=== PATIENT | male | born 1960 | race Caucasian/White ===

== ENCOUNTER 2019-01-22 09:19 | Emergency (ER) | payer OTHER ==
[2019-01-22] MEDS ORDERED: ASPIRIN 81 MG CHEW PO ONE (09:25)
[2019-01-22] MEDS ORDERED: ONDANSETRON 4 MG/2 ML VIAL IVP ONE ×2 (09:30→11:30)
[2019-01-22] MEDS ORDERED: NITROGLYCERIN OINT 1 GM PKT TP ONE (09:30)
[2019-01-22] MEDS ORDERED: MORPHINE 4 MG/ML SDV IVP ONE (09:30)
--- NOTE | 2019-01-22 09:38 | ER Report ---
History and Physical Time Seen By MD: 09:26 Hx. of Stated Complaint: chest pain and sob similar to previous mi starting about 0600 HPI/ROS CHIEF COMPLAINT: Chest pain HISTORY OF PRESENT ILLNESS: Patient is a 59-year-old male who normally lives in [place] states that he was traveling some. [place] the last day or so. States that it 6 in the morning while leaving the city of [place], he developed chest pain that's similar to his prior anginal equivalent. He at that time took 325 mg aspirin and 4 doses of nitroglycerin without relief of his symptoms. Patient states she has 11 out of 10 chest pain associated with nausea and reports diaphoresis as well as shortness of breath. He states that he is had 5 prior myocardial infarctions and has a history of coronary artery stenting which most recently occurred in August 2018 in [place], [place]. Patient does continue to smoke approximately 1-2 packs of cigarettes per day. He also states he has a history of hypertension and takes medication for this he denies history of hypercholesterolemia. Patient reports allergies to Reglan and Compazine Toradol Avelox and penicillin. REVIEW OF SYSTEMS: Constitutional: No fever, no chills. Reports diaphoresis Eyes: No discharge. ENT: No sore throat. Cardiovascular: Chest pain Respiratory: Shortness of breath Gastrointestinal: Nausea without abdominal pain or vomiting Genitourinary: No hematuria. Musculoskeletal: No back pain. Skin: No rashes. Neurological: No headache. Allergies: Coded Allergies: Penicillins (Verified Allergy, Unknown, 01/22/19) butorphanol (Verified Allergy, Unknown, 01/22/19) ketorolac (Verified Allergy, Unknown, 01/22/19) metoclopramide (Verified Allergy, Unknown, 01/22/19) moxifloxacin (Verified Allergy, Unknown, 01/22/19) prochlorperazine (Verified Allergy, Unknown, 01/22/19) Home Meds Active Scripts Tramadol Hcl (TRAMADOL HCL) 50 Mg Tablet, 50 MG PO Q6H PRN for PAIN, #12 TAB 0 Refills Prov:KARLO CONN MD 01/22/19 Ondansetron Hcl (ZOFRAN) 4 Mg Tablet, 4 MG PO Q8H for Nausea, #15 TAB 0 Refills Prov:KARLO CONN MD 01/22/19 Reported Medications Clopidogrel Bisulfate (PLAVIX) 75 Mg Tablet, 1 TAB PO QDAY, TAB 01/22/19 Aspirin (ASPIR 81) 81 Mg Tablet.dr, 81 MG PO QDAY, TAB 01/22/19 Gabapentin (GABAPENTIN) 300 Mg Capsule, 300 MG PO TID, CAPSULE 01/22/19 Loperamide Hcl (LOPERAMIDE) 2 Mg Capsule, 2 MG PO, CAPSULE 01/22/19 Metoprolol Succinate (METOPROLOL SUCCINATE) 25 Mg Tab.er.24h, 1 TAB PO QDAY, TAB 01/22/19 Divalproex Sodium (DEPAKOTE) 125 Mg Tab, 125 MG PO BID, TAB 01/22/19 Amlodipine Besylate (AMLODIPINE BESYLATE) 10 Mg Tablet, 1 TAB PO QDAY, TAB 01/22/19 Past Medical/Surgical History History of coronary artery disease status post IA 5 with coronary artery stenting, hypertension he denies history of diabetes. Patient does have a history of peripheral neuropathy which she takes gabapentin for, he also has a mood disorder and is on Depakote. He takes amlodipine for blood pressure he is on metoprolol as well as Plavix and aspirin. Constitutional Vital Sign - Last 24 Hours 01/22/19 01/22/19 01/22/19 01/22/19 09:23 09:30 09:40 09:44 Temp 98.0 Pulse 94 79 Resp 18 15 B/P (MAP) 145/117 124/88 (100) 141/89 (106) Pulse Ox 95 96 O2 Delivery Room Air O2 Flow Rate 2.0 01/22/19 01/22/19 01/22/19 01/22/19 09:45 09:50 10:00 10:10 Pulse 81 84 Resp 17 11 B/P (MAP) 144/89 (107) 144/95 (111) 135/90 (105) Pulse Ox 94 93 01/22/19 01/22/19 01/22/19 01/22/19 10:15 10:20 10:30 10:40 Pulse 81 85 Resp 14 21 B/P (MAP) 153/96 (115) 118/65 (82) 136/88 (104) Pulse Ox 91 87 01/22/19 01/22/19 01/22/19 01/22/19 10:45 10:50 11:00 11:10 Pulse 80 70 Resp 25 7 B/P (MAP) 133/95 (108) 140/96 (111) 129/74 (92) Pulse Ox 92 90 01/22/19 01/22/19 01/22/19 01/22/19 11:15 11:20 11:30 12:00 Pulse 75 75 71 Resp 14 23 13 B/P (MAP) 133/98 (110) 135/79 (97) 111/66 (81) Pulse Ox 91 92 91 Physical Exam General/Constitutional: Patient is awake, alert, nontoxic and in no acute respiratory distress. Head: Normocephalic and atraumatic. Eyes: Conjunctival clear, Pupils are equal and reactive to light. Extraocular muscles are intact and symmetrical. Sclera are clear and anicteric. Ears:External canals are clear. Tympanic membranes are clear with normal landmarks and light reflex. Oropharyngeal: Mucous membranes are moist. Mild erythema no exudate Neck: Supple, no adenopathy. Cardiovascular: Distant Heart sounds but regular rate and rhythm Pulmonary: There are decreased lung sounds bilaterally, no obvious wheezes or rales AB: Protuberant but nontender, no guarding or peritoneal signs. Extremities: No gross deformities, No peripheral cyanosis. Able to move all 4 extremities. Neuro: Alert and oriented X3, Skin: No rashes, skin is warm dry and well perfused. Medical Decision Making Data Points Result Diagram: 01/22/1926 01/22/19 0926 Laboratory Hematology Test 01/22/19 09:26 White Blood Count 8.2 k/uL (4.5-11.0) Red Blood Count 5.09 M/uL (4.00-5.60) Hemoglobin 17.6 g/dL (14.0-18.0) Hematocrit 50.0 % (42.0-52.0) Mean Corpuscular Volume 98.2 fL (80.0-96.0) H Mean Corpuscular Hemoglobin 34.5 pg (26.0-33.0) H Mean Corpuscular Hemoglobin Concent 35.2 g/dL (32.0-36.0) Red Cell Distribution Width 13.9 % (11.5-14.5) Platelet Count 174 K/uL (150-450) Mean Platelet Volume 8.7 fL (7.2-11.1) Neutrophils (%) (Auto) 80.0 % (39.4-72.5) H Lymphocytes (%) (Auto) 12.4 % (17.6-49.6) L Monocytes (%) (Auto) 6.2 % (4.1-12.4) Eosinophils (%) (Auto) 1.1 % (0.4-6.7) Basophils (%) (Auto) 0.3 % (0.3-1.4) Nucleated RBC Relative Count (auto) 0.1 /100WBC Neutrophils # (Auto) 6.6 K/uL (2.0-7.4) Lymphocytes # (Auto) 1.0 K/uL (1.3-3.6) L Monocytes # (Auto) 0.5 K/uL (0.3-1.0) Eosinophils # (Auto) 0.1 K/uL (0.0-0.5) Basophils # (Auto) 0.0 K/uL (0.0-0.1) Nucleated RBC Absolute Count (auto) 0.01 K/uL Chemistry Test 01/22/19 09:26 01/22/19 11:28 Sodium Level 140 mmol/L (137-145) Potassium Level 3.7 mmol/L (3.5-5.0) Chloride Level 102 mmol/L (98-107) Carbon Dioxide Level 29 mmol/L (22-30) Blood Urea Nitrogen 11 mg/dl (9-21) Creatinine 1.10 mg/dl (0.66-1.25) Glomerular Filtration Rate Calc > 60.0 Random Glucose 153 mg/dl (75-110) Calcium Level 9.9 mg/dl (8.4-10.2) Total Bilirubin 0.7 mg/dl (0.2-1.3) Aspartate Amino Transf (AST/SGOT) 20 U/L (0-35) Alanine Aminotransferase (ALT/SGPT) 23 U/L (0-56) Alkaline Phosphatase 78 U/L (0-126) B-Type Natriuretic Peptide 73 pg/ml (0-100) Total Protein 7.7 g/dl (6.3-8.2) Albumin 4.7 g/dl (3.5-5.0) Troponin I 0.089 ng/ml Coagulation Test 01/22/19 00:00 01/22/19 09:26 D-Dimer Quantitative (PE/DVT) < 0.27 ug/ml (0-0.50) Prothrombin Time 13.3 seconds (12.0-14.4) Prothromb Time International Ratio 1.01 Activated Partial Thromboplast Time 32 seconds (23-35) EKG/Imaging EKG Interpretation There is no prior EKG at this time to comparison however EKG from today shows normal sinus rhythm with a ventricular rate of [address] segments appeared normal and no evidence of Q waves or prior IA by electrical criteria. EKG shows sinus rhythm with wandering baseline occasional fusion complex otherwise no significant change from initial EKG on presentation. Monitor Interpretation: Normal Sinus Rhythm Imaging FACILITY: [facility] [place] PATIENT NAME: Mingo Weaver : 1960 MR: [id number] V: [id number] EXAM DATE: ORDERING PHYSICIAN: KARLO CONN TECHNOLOGIST: Location: [facility] [place] Patient: Mingo Weaver : 1960 Visit/Account:[id number] Date of Sevice: 01/22/2019 Portable chest, one view. HISTORY: Chest pain. COMPARISON: None. EKG leads project on the chest. Small densities consistent with calcified granulomas project on the left upper lung and aortopulmonary window. The heart and mediastinum are otherwise unremarkable. No bulky adenopathy. Pulmonary vessels are unremarkable. The lungs are otherwise clear. The pleural surfaces are unremarkable. No pneumothorax. A healed fracture is present in the right clavicle. IMPRESSION: Old granulomatous disease. Otherwise no evidence of acute cardiopulmonary disease. Report Dictated By: Felipe Fry MD at 01/22/2019 9:50 AM Report E-Signed By: Felipe Fry MD at 01/22/2019 9:52 AM WSN:VEIN-CHARLES ED Course/Re-evaluation Clinical Indication for ER IV: IV Access ED Course 01/22/2019 9:30:29 am patient with chest pain; After history and physical exam was performed differential diagnosis was formulated which includes but is not limited to acute coronary syndrome, IA although no evidence of ST segment elevation or depression to suggest either STEMI or non-STEMI based on EKG criteria at this time., Pulmonary embolism, pneumothorax, esophageal rupture although this is very unlikely. Also doubt pneumonia, also doubt aortic dissection but will include this in the differential diagnosis. Patient has already taken an appropriate dose of aspirin he is also tried sublingual nitroglycerin without relief. We will give Zofran for nausea, morphine for pain we will also placed 1 inch of Nitropaste on the patient we will attempt to reduce the patient's pain with appropriate analgesics will perform an initial troponin and a repeat troponin had at least 4 hours. We will also perform a d- dimer as well as brain natruretic peptide. I we are going to attempt to obtain medical records in the listed medications from the patient's prior hospitalization in [facility]. 01/22/2019 10:01:38 am patient appears to be resting comfortably watching television in the exam room. He states the 4 mg morphine did not help his pain at all he was redosed with 1 mg of IV Dilaudid. His initial troponin was 0.094 which puts it in the high end of the indeterminate range. Patient states his symptoms did begin around 6 AM and has b een constant, so rather than a delta troponin at 4 hours we will do a dense troponin at the two-hour window which will put him 6 hours from onset of symptoms. It was explained to the patient that if his number goes up or becomes in the positive range we will likely need to discuss transferring him to the closest appropriate facility under cardiology which [facility] be [facility]. Pulmonary embolism has been ruled out as patient is low risk by well's criteria with a negative d-dimer. Chest x-ray is otherwise unremarkable just showing some old granulomatous changes there is no evidence for aortic dissection on x-ray including normal appearance of the aortic knob, normal AP wi ndow no evidence of pleural capping or pleural effusion no evidence of tracheal deviation. HEART SCORE History- (Highly suspicious-2; Moderately suspicious-1; Slightly suspicious- 0)=2 EKG- (Significant ST depression-2; Nonspecific repolarization-1; Normal-0)=0 Age- (>65-2; 45-65-1; <45-0)=1 Risk factors- ( 3 or more-2; 1 to 2-1; None-0)=3 Troponin- >2x normal-2; 1-2x normal-1; < normal limit-0)=1 Total-6 this correlates with a major adverse coronary event in 30 days of 12-16% 01/22/2019 11:17:53 am I was able to obtain medical records from [facility] and clinics which had some very useful history. The patient's last hospital admission was 11/13/2018 to the [facility] for a chest pain evaluation, according to the medical record from the initial H&P the patient was a direct admission to [facility] after he presented to the [facility] ED and was noted that that was his 5th ED visit since last admission. He apparently had a non-STEMI on 08/04/2018 which required a stent JOLEEN to T1 ostial lesion, he presented on 08/10/2018 with chest pain and was re- cast and found to have clean coronary arteries. Patient was noted in his medical records at the patient does have chronically elevated troponins values that they listed as 0.078 with follow-up of 0.077. He was noted in the medical record that the patient does have a history of chronic pain and frequently requesting narcotic medication as ER patient as well as inpatient. He apparently was seen in the emergency department on 11/06/2018 and left against medical advice when he was refused narcotic pain medication. It was also noted during his most recent admission that he would threaten to leave AMA because he wanted to "go outside and smoke" his discharge summary from 11/17/2018 was noted for the following"[He] seems to be seeking anything that might [place] he feels, whether it is gabapentin, Depakote, narcotics, tramadol or SSRI, he asks for all of them." The provider notes that he was concerned about patient being on all of these medications in an unmonitored setting as an outpatient and his recommendation at that time was to discharge the patient without any of these prescriptions specially because he "is not taking care of himself, smokes heavily and seeks narcotics" 01/22/2019 11:35:26 am and informed by nursing staff the patient has refused the acetaminophen for pain. Because I do have concerns about the possibility of seeking opiate pain medication based on the prior medical records that we reviewed wishes off on getting further doses of opiate pain medication I 2nd EKG is unremarkable awaiting for repeat 2nd troponin. If unchanged suspect will discharge the patient home as it appears that this elevation of his troponin may be a chronic and baseline elevation if however the troponin does continue to increase and will consult cardiology for further disposition 01/22/2019 12:01:47 pm a 2nd troponin 0.089 which is slightly lower than i nitial troponin, given the history that this patient has a documented history of chronically elevated troponin feel that findings likely represent a baseline finding in this patient. I do have some concerns about the possibility of opiate pain medicine seeking but I do feel that the patient is safe at this time to be discharged home with recommendation to follow-up with his primary care provider upon return home. Decision to Disposition Date: Jan 22, 2019 Decision to Disposition Time: 12:03 Depart Departure Latest Vital Signs Vital Signs Date Time Temp Pulse Resp B/P (MAP) Pulse Ox O2 Delivery O2 Flow Rate FiO2 01/22/19 12:00 71 13 111/66 (81) 91 01/22/19 09:44 2.0 01/22/19 09:23 98.0 Room Air Impression: Primary Impression: Non-cardiac chest pain Condition: Improved Disposition: HOME OR SELF-CARE New Scripts Tramadol Hcl (TRAMADOL HCL) 50 Mg Tablet 50 MG PO Q6H PRN for PAIN, #12 TAB 0 Refills Prov: KARLO CONN MD 01/22/19 Ondansetron Hcl (ZOFRAN) 4 Mg Tablet 4 MG PO Q8H for Nausea, #15 TAB 0 Refills Prov: KARLO CONN MD 01/22/19 Patient Instructions: Noncardiac Chest Pain (GEN) Additional Instructions: Continue all outpatient medications as directed, follow up with your primary care provider routinely when you return home. If while you are travelling have recurrent chest pain you are recommended to go to the nearest emergency department or call 911 for medical evaluation. KARLO CONN MD Jan 22, 2019 09:38
[2019-01-22 09:39] LABS: PLATELET COUNT, AUTOMATED 174 K/uL (150-450)
--- NOTE | 2019-01-22 09:39 | EKG ---
FACILITY: [facility] PATIENT NAME: JAN BELLE : [id number] MR: [id number] V: [id number] EXAM DATE: ORDERING PHYSICIAN: KARLO CONN TECHNOLOGIST: JESSIE Test Reason : CP Blood Pressure : / mmHG Vent. Rate : 087 BPM Atrial Rate : 087 BPM P-R Int : 136 ms QRS Dur : 086 ms QT Int : 374 ms P-R-T Axes : 080 061 076 degrees QTc Int : 450 ms Sinus rhythm Possible biatrial enlargement No acute appearing findings No previous ECGs available Confirmed by MYRNA ESTRADA ([id number]) on 01/22/2019 10:00:36 AM Referred By: FABIEN Confirmed By:MYRNA ESTRADA
[2019-01-22] MEDS ORDERED: HYDROMORPHONE HCL 1 MG/ML SYRINGE IVP ONE (09:50)
[2019-01-22 09:54] LABS: INR 1.01
[2019-01-22] MEDS ORDERED: METO25TA23 PO (09:57)
[2019-01-22] MEDS ORDERED: GABA-549 PO (09:57)
[2019-01-22] MEDS ORDERED: LOPE2CAP88 PO (09:57)
[2019-01-22] MEDS ORDERED: AMLO-127 PO (09:57)
[2019-01-22] MEDS ORDERED: CLOP75TA43 PO (09:57)
[2019-01-22] MEDS ORDERED: DIVSR125 PO (09:57)
[2019-01-22] MEDS ORDERED: ASPI-1471 PO (09:57)
--- NOTE | 2019-01-22 09:59 | RADIOLOGY IMAGING REPORT ---
[place] [facility] [place] Mingo Weaver : 1960 MR: [id number] V: [id number] EXAM DATE: ORDERING PHYSICIAN: KARLO CONN TECHNOLOGIST: Location: [facility] Patient: Mingo Weaver : 1960 Visit/Account:[id number] Date of Sevice: 01/22/2019 Portable chest, one view. HISTORY: Chest pain. COMPARISON: None. EKG leads project on the chest. Small densities consistent with calcified granulomas project on the left upper lung and aortopulmonary window. The heart and mediastinum are otherwise unremarkable. No bulky adenopathy. Pulmonary vessels are unremarkable. The lungs are otherwise clear. The pleural s urfaces are unremarkable. No pneumothorax. A healed fracture is present in the right clavicle. IMPRESSION: Old granulomatous disease. Otherwise no evidence of acute cardiopulmonary disease. Report Dictated By: Felipe Fry MD at 01/22/2019 9:50 AM Report E-Signed By: Felipe Fry MD at 01/22/2019 9:52 AM WSN:BUDDY
[2019-01-22] MEDS ORDERED: ACETAMINOPHEN(*)1000 MG/100 ML 100 ML IVPB ONE (11:30)
[2019-01-22 12:00] VITALS: BP 111/66
[2019-01-22] MEDS ORDERED: ONDA4TAB97 PO (12:07)
[2019-01-22] MEDS ORDERED: TRAM-420 PO (12:07)
--- NOTE | 2019-01-22 15:45 | EKG ---
FACILITY: [facility] [place] PATIENT NAME: JAN BELLE : [id number] MR: [id number] V: [id number] EXAM DATE: ORDERING PHYSICIAN: KARLO CONN TECHNOLOGIST: Ivana Luther Reason : repeat Blood Pressure : / mmHG Vent. Rate : 074 BPM Atrial Rate : 074 BPM P-R Int : 150 ms QRS Dur : 076 ms QT Int : 398 ms P-R-T Axes : 036 053 065 degrees QTc Int : 441 ms Sinus rhythm with possibly 2 different P wave morphologies Otherwise normal ECG Confirmed by NICHOLE BRIONES ([id number] on 01/23/2019 11:16:17 AM Referred By: Confirmed By:NICHOLE BRIONES
== END 2019-01-22 12:11 | disposition home or self-care (01) ==
LOC: ER 09:23
DX: R07.89 Other chest pain (principal); I25.2 Old myocardial infarction; Z76.5 Malingerer [conscious simulation]; Z95.1 Presence of aortocoronary bypass graft
CPT/HCPCS: 71045; 83880; 84484; 85025; 85379; 85610; 85730; 93005; 96374; 96375; 96376; 99285; J1170; J2270; J2405; 82040; 82247; 82310; 82374; 82435; 82565; 82947; 84075; 84132; 84155; 84295; 84450; 84460; 84520; 96361